=== PATIENT | female | born 1975 | race Hispanic/Latino ===

== ENCOUNTER 2018-08-22 11:02 | Emergency (ER) | payer OTHER ==
[2018-08-22] MEDS ORDERED: ACETAMINOPHEN-CODEINE 300/30MG TAB ONE (11:58)
== END 2018-08-22 12:49 | disposition home or self-care (01) ==
LOC: EDH 11:02
DX: Z48.00 Encounter for change or removal of nonsurgical wound dressing (principal); Z90.49 Acquired absence of other specified parts of digestive tract; Z98.890 Other specified postprocedural states